=== PATIENT | male | born 1955 | race Caucasian/White ===

== ENCOUNTER 2016-11-26 08:11 | Emergency (ER) | payer BC, MEDICAID ==
[2016-11-26 08:29] VITALS: BP 140/86
--- NOTE | 2016-11-26 09:04 | EDM.PDOC ---
ED HPI GENERAL MEDICAL PROBLEM - General Chief Complaint: Bite:Animal, Insect Stated Complaint: DEER TICK Time Seen by Provider: 11/26/16 08:56 Source of Information: Reports: Patient History Limitations: Reports: No Limitations - History of Present Illness INITIAL COMMENTS - FREE TEXT/NARRATIVE: History of present illness: [Presents with a dear tick bite the left side it outline. He believes to get attached last night. He is already removed. He brought in and it is a dear tick and it is not engorged. He has no symptoms] Review of systems: As per history of present illness and below otherwise all systems reviewed and negative. Past medical history: As per history of present illness and as reviewed below otherwise noncontributory. Surgical history: As per history of present illness and as reviewed below otherwise noncontributory. Social history: No reported history of drug or alcohol abuse. Family history: As per history of present illness and as reviewed below otherwise noncontributory. Physical exam: HEENT: Atraumatic, normocephalic, pupils reactive, negative for conjunctival pallor or scleral icterus, mucous membranes moist, throat clear, neck supple, nontender, trachea midline. Lungs: Clear to auscultation, breath sounds equal bilaterally, chest nontender. Heart: S1S2, regular, negative for clicks, rubs, or JVD. Abdomen: Soft, nondistended, nontender. Negative for masses or hepatosplenomegaly. Negative for costovertebral tenderness. He has a small ulceration where the tick bite was attached left-sided beltline. No surrounding rash or erythema. Pelvis: Stable nontender. Genitourinary: Deferred. Rectal: Deferred. Extremities: Atraumatic, negative for cords or calf pain. Neurovascular unremarkable. Neuro: Awake, alert, oriented. Cranial nerves II through XII unremarkable. Cerebellum unremarkable. Motor and sensory unremarkable throughout. Exam nonfocal. Diagnostics: [] Therapeutics: [] Impression: [Dear tick bite] Plan: [Discussed with him the CDC recommendations and that under his circumstances antibiotics would not be needed or indicated and he's comfortable with that.] Definitive disposition and diagnosis as appropriate pending reevaluation and review of above. - Related Data Allergies Allergy/AdvReac Type Severity Reaction Status Date / Time No Known Allergies Allergy Verified 11/26/16 08:29 Home Meds: Home Meds atorvaSTATin [Lipitor] 20 mg PO BEDTIME 11/26/16 [History] Past Medical History Cardiovascular History: Reports: High Cholesterol Social & Family History - Tobacco Use Smoking Status *Q: Never Smoker Second Hand Smoke Exposure: No - Caffeine Use Caffeine Use: Reports: Coffee - Alcohol Use Days Per Week of Alcohol Use: 0 - Recreational Drug Use Recreational Drug Use: No ED ROS GENERAL - Review of Systems Review Of Systems: ROS reveals no pertinent complaints other than HPI. ED EXAM, ANIMAL BITE - Physical Exam Exam: See Below Course - Vital Signs Last Recorded V/S: Last Vital Signs Temp 36.1 C 11/26/16 08:25 Pulse 63 11/26/16 08:25 Resp 16 11/26/16 08:25 BP 140/86 11/26/16 08:25 Pulse Ox 98 11/26/16 08:25 Departure - Departure Time of Disposition: 09:03 Disposition: Home, Self-Care 01 Condition: good Clinical Impression: Tick bite of flank Qualifiers: Encounter type: initial encounter Qualified Code(s): S30.861A - Insect bite ( nonvenomous) of abdominal wall, initial encounter; W57.XXXA - Bitten or stung by nonvenomous insect and other nonvenomous arthropods, initial encounter - Discharge Information Forms: ED Department Discharge Additional Instructions: If you've been expanding rash of any type around this tic bite or you begin to feel ill with flulike symptoms and joint pain etc. you'll need to be seen again but the likelihood of this happening is close to 0
== END 2016-11-26 09:19 | disposition home or self-care (01) ==
LOC: JP.ED 08:11
DX: S30.861A Insect bite (nonvenomous) of abdominal wall, initial encounter (principal); E78.00 Pure hypercholesterolemia, unspecified; W57.XXXA Bitten or stung by nonvenomous insect and other nonvenomous arthropods, initial encounter
CPT/HCPCS: 99282

== ENCOUNTER 2024-06-19 07:36 | Day surgery (SDC) | payer MEDICAID, MEDICARE ==
[~2024-06-19 07:36] MED LIST: Propofol 200 MG/20 ML SDV ONE; fentaNYL 100 MCG/2 ML SDV ONE
[2024-06-19] MEDS: Lactated Ringers 1,000 ML IV SCH (08:35)
[2024-06-19 10:56] VITALS: BP 139/78; PULSE 60
== END 2024-06-19 11:00 | disposition home or self-care (01) ==
LOC: JP.SDS 07:36
PROVIDERS: ATTEND Surgery
DX: Z12.11 Encounter for screening for malignant neoplasm of colon (principal); K57.30 Diverticulosis of large intestine without perforation or abscess without bleeding
CPT/HCPCS: G0121; J2704; J3010; J7120